=== PATIENT | male | born 1945 | race Caucasian/White ===

== ENCOUNTER → 2017-04-29 | Outpatient (CLI) | payer MEDICARE, BC ==
--- NOTE | 2017-05-06 13:49 | SS ---
ADMIT: 04/29/2017 RM/LOC: [facility] MR#: [id number] [address] [id number] [place]WOOD [address] [place] [address] Sleep Study SEX: M AGE: 72 : 1945 STUDY DATE: 04/29/2017 REFERRING PHYSICIAN: Berto Granda MD CLINICAL HISTORY: A 72-year-old male, body mass of 41.7, 71 inches tall, 298 pounds with symptoms of daytime sleepiness, obstructive sleep apnea in the sleep lab for CPAP titration. TECHNICAL DESCRIPTION: CPAP titration performed on night of 04/29/2017, attended by a trained hyperbaric technologist. TITRATION FINDINGS: TITRATION DESCRIPTION: The patient was titrated from 14 cm of CPAP. The patient's home mask was used initially then switched to ResMed AirFit F20 mask. SLEEP: Total time in bed is 414.5 minutes, total sleep time 352.5 minutes, sleep efficiency 85%. 73.2% hours spent in stage II sleep, 9.7% hours spent in stage REM. BREATHING: Excellent resolution of obstructive sleep apnea was seen on CPAP 14 cm. The patient was seen in REM sleep in lateral position. OXYGEN SATURATION: Mean sleeping oxygen 95%. CARDIAC: Average heart rate 55 beats per minute. MOVEMENTS/POSITION: During the study, the patient slept in the supine lateral position. Significant periodic leg movements of sleep were seen in the first half of the night. At the ending pressure of 14 cm, the patient had no significant periodic leg movements of sleep. IMPRESSION AND PLAN: Recommend using CPAP 14 cm with mask as mentioned above. Recommend losing weight, avoiding sedatives and alcohol. Refrain from driving if excessively sleepy. Clinical correlation needed. CPAP compliance followup is recommended. Antwan Hyde MD/ nicolas JOB #: [id number] CC: Ryan Barboza, Attending Physician Jasvir Soto MD, Family Physician Ryan Barboza
== END | disposition home or self-care (01) ==
LOC: RESC 04-17 21:00
DX: G47.33 Obstructive sleep apnea (adult) (pediatric) (principal)